=== PATIENT | male | born 1980 | race Caucasian/White ===

== ENCOUNTER 2016-12-19 19:32 | Emergency (ER) | payer OTHER ==
[~2016-12-19] VITALS: Ht 162.6 cm; Wt 71.1 kg
[2016-12-19 21:15] LABS: ADD MIUA? YES; BILIRUBIN SMALL; BLOOD LARGE; COLOR AMBER ((YELLOW)); GLUCOSE (STRIP) NEGATIVE; KETONES NEGATIVE; LEUKOCYTES LARGE; NITRITE NEGATIVE; PROTEIN (STRIP) 100; SPECIFIC GRAVITY 1.029 (1.000-1.030)
[2016-12-19 21:32] LABS: RED BLOOD CELLS TNTC /HPF (0-5); WHITE BLOOD CELLS TNTC /HPF (0-5)
[2016-12-19 21:33] LABS: BACTERIA 2+ /HPF; CASTS NONE SEEN /LPF; CRYSTALS NONE SEEN; EPITHELIAL CELLS RARE /HPF; MUCUS NONE SEEN /LPF; UCUL ADDED? YES
[2016-12-19] MEDS ORDERED: VIBRAMYCIN100 MG PO (23:33)
[2016-12-19 23:43] VITALS: BP 122/80
[2016-12-19] MEDS ORDERED: MOTRIN800 MG PO (23:50)
== END 2016-12-19 23:59 | disposition home or self-care (01) ==
LOC: EME 19:32
DX: N45.3 Epididymo-orchitis (principal); B19.20 Unspecified viral hepatitis C without hepatic coma; F17.200 Nicotine dependence, unspecified, uncomplicated
CPT/HCPCS: 76870; 81003; 87077; 87086; 87147; 87186; 99281; 99285; J0696